=== PATIENT | male | born 1970 | race Caucasian/White ===

== ENCOUNTER 2024-01-07 13:28 | Emergency (ER) | payer OTHER ==
[2024-01-07] MEDS ORDERED: IBUPROFEN 400 MG TAB ONE ×2 (14:08→14:20)
[2024-01-07] MEDS ORDERED: IBUPROFEN 200 MG TAB PO ONE (14:08)
[2024-01-07] MEDS ORDERED: HYDROCODONE/APAP 10/325 TAB ONE (14:09)
--- NOTE | 2024-01-07 14:44 | RAD REPORT ---
EXAM DESCRIPTION: RAD - Foot Left 3 View - 01/07/2024 2:17 pm CLINICAL HISTORY: Left Foot pain FINDINGS: No fracture or dislocation is seen. Large calcaneal spurs
--- NOTE | 2024-01-07 14:57 | EDPHYS ---
Physician Documentation [facility] Name: Stepan Workman Age: 53 yrs Sex: Male : 1970 Arrival Date: 01/07/2024 Time: : Bed 13 Private MD: ED Physician Martinez Hatch HPI: 01/06 13:44 This 53 yrs old Male presents to ER via Ambulatory with complaints of Ankle Injury. rn 13:46 The patient presents with decreased range of motion, an injury, pain. The complaints rn affect the left foot. 13:46 Onset: The symptoms/episode began/occurred 1 week(s) ago. Modifying factors: The rn symptoms are alleviated by nothing, the symptoms are aggravated by movement. Severity of symptoms: At their worst the symptoms were moderate, in the emergency department the symptoms are unchanged. The patient has not experienced similar symptoms in the past. Patient reports stepped in a pothole wearing steel toe boots a week ago. Had pain to the left midfoot. States pain was getting better but now getting worse. Tried going to work today wearing steel toe boots and hurt even more. No open wounds. Reports hurts to dorsum of midfoot.. 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 - Infectious Disease History:: Denies. - Family history:: not pertinent. - Hospitalizations: : No recent hospitalization is reported. - Social history:: Smoking status: Patient denies any tobacco usage or history of. ROS: 13:46 Constitutional: Negative for fever, chills, and weight loss, MS/Extremity: Positive for rn injury and pain to left foot. Skin: Negative for injury, rash, and discoloration, Exam: 13:46 Constitutional: This is a well developed, well nourished patient who is awake, alert, rn and in no acute distress. MS/ Extremity: Pulses equal, no cyanosis. Neurovascular intact. Mild tenderness dorsum left midfoot, no open wounds. No warmth. No significant swelling. No tenderness of the ankle or tib-fib. Vital Signs: 13:40 BP 117 / 86; Pulse 68; Resp 16; Temp 97.8; Pulse Ox 100% on R/A; Weight 122.47 kg; hb Height 6 ft. 2 in. ; Pain 9/10; 15:01 BP 120 / 81; Pulse 71; Resp 17; Pulse Ox 99% on R/A; rs5 13:40 Body Mass Index 34.67 (122.47 kg, 187.96 cm) hb 13:40 Pain Scale: Adult hb MDM: 13:31 Patient medically screened. rn 14:56 Differential diagnosis: fracture, sprain. Data reviewed: vital signs, nurses notes, rn radiologic studies, plain films, and as a result, I will discharge patient. Counseling: I had a detailed discussion with the patient and/or guardian regarding the historical points, exam findings, and any diagnostic results supporting the discharge/admit diagnosis, radiology results, the need for outpatient follow up, to return to the emergency department if symptoms worsen or persist or if there are any questions or concerns that arise at home. Special discussion: I discussed with the patient/guardian in detail that at this point there is no indication for admission to the hospital. It is understood, however, that if the symptoms persist or worsen the patient needs to return immediately for re-evaluation. Based on the history and exam findings, there is no indication for further emergent testing or inpatient evaluation. I discussed with the patient/guardian the need to see the rheumatology specialist for further evaluation of the symptoms. I discussed with the patient/guardian the need to see the primary care provider for further evaluation of the symptoms. 14:56 Independent interpretation of the following test(s) in the Emergency Department X-Ray: rn My interpretation is X-ray left foot images negative for acute fracture or dislocation per my interpretation.. 01/06 13:44 Order name: XRAY Foot LEFT 3 View; Complete Time: 14:48 rn Administered Medications: 14:06 Drug: Ibuprofen PO 800 mg PO once Route: PO; rs5 15:00 Follow up: Response: No adverse reaction; Pain is decreased rs5 14:06 Drug: [place] PO 10 mg-325 mg 1 tabs PO once Route: PO; rs5 15:00 Follow up: Response: No adverse reaction rs5 Disposition Summary: 01/07/24 14:57 Discharge Ordered Notes: Location: Home rn Problem: new rn Symptoms: have improved rn Condition: Stable rn Diagnosis - Other sprain of left foot rn Followup: rn - With: Private Physician - When: As needed - Reason: Recheck today's complaints, Re-evaluation by your physician Discharge Instructions: - Discharge Summary Sheet rn - Foot Sprain rn - Foot Pain rn Forms: - Medication Reconciliation Form rn - Antibiotic fingernail technician - Prescription Opioid Use rn - Patient Portal Instructions rn - Leadership Thank You Letter rn Signatures: Dispatcher [employer] Martinez Sosa MD MD rn Baxter, Heather, RN RN Johnson Donnelly RN RN rs5
--- NOTE | 2024-01-07 14:57 | ER ---
Nurse's Notes [facility] Name: Stepan Workman Age: 53 yrs Sex: Male : 1970 Arrival Date: 01/07/2024 Time: 13:28 Bed 13 Private MD: Diagnosis: Other sprain of left foot Presentation: 01/06 13:40 Chief complaint: Worsening left ankle pain x 1 week. Coronavirus screen: At this time, hb the client does not indicate any symptoms associated with coronavirus-19. Ebola Screen: No symptoms or risks identified at this time. Initial Sepsis Screen: Does the patient meet any 2 criteria? No. Patient's initial sepsis screen is negative. Does the patient have a suspected source of infection? No. Patient's initial sepsis screen is negative. Risk Assessment: Do you want to hurt yourself or someone else? Patient reports no desire to harm self or others. Onset of symptoms was December 31, 2023. 13:40 Method Of Arrival: Ambulatory hb 13:40 Acuity: IWONA 4 hb Triage Assessment: 13:34 General: Appears in no apparent distress. uncomfortable, Behavior is calm, cooperative. rs5 Pain: Complains of pain in left ankle. 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 - Infectious Disease History:: Denies. - Family history:: not pertinent. - Hospitalizations: : No recent hospitalization is reported. - Social history:: Smoking status: Patient denies any tobacco usage or history of. Screenin:33 Abuse screen: Denies threats or abuse. rs5 13:33 Nutritional screening: No deficits noted. Tuberculosis screening: No symptoms or risk rs5 factors identified. 13:45 [facility] ED Fall Risk Assessment (Adult) History of falling in the last 3 months, hb including since admission No falls in past 3 months (0 pts) Confusion or Disorientation No (0 pts) Intoxicated or Sedated No (0 pts) Impaired Gait No (0 pts) Mobility Assist Device Used No (0 pt) Altered Elimination No (0 pt) Score/Fall Risk Level 0 - 2 = Low Risk Oriented to surroundings, Maintained a safe environment, Educated pt \T\ family on fall prevention, incl call for assistance when getting out of bed, Assessed \T\ reinforced patient's understanding of fall precautions, Hourly rounding (assess needs \T\ fall precautionary measures) done. Assessment: 13:33 General: Appears in no apparent distress. uncomfortable, Behavior is calm, cooperative. rs5 Pain: Complains of pain in left ankle Pain currently is 8 out of 10 on a pain scale. Quality of pain is described as aching, Is continuous. Neuro: Level of Consciousness is awake, alert, obeys commands, Oriented to person, place, time, situation. Cardiovascular: Rhythm is regular. Respiratory: Airway is patent Respiratory effort is even, unlabored, Respiratory pattern is regular, symmetrical. GI: Abdomen is round non-distended, Abd is soft and non tender X 4 quads. : No signs and/or symptoms were reported regarding the genitourinary system. EENT: No signs and/or symptoms were reported regarding the EENT system. Derm: Skin is intact, Skin is pink, warm \T\ dry. Musculoskeletal: Range of motion: limited in left ankle. 14:41 Reassessment: Patient and/or family updated on plan of care and expected duration. Pain rs5 level reassessed. Patient is alert, oriented x 3, equal unlabored respirations, skin warm/dry/pink. Patient states feeling better. Patient states symptoms have improved. 15:10 Reassessment: No changes from previously documented assessment. rs5 Vital Signs: 13:40 BP 117 / 86; Pulse 68; Resp 16; Temp 97.8; Pulse Ox 100% on R/A; Weight 122.47 kg; hb Height 6 ft. 2 in. ; Pain 9/10; 15:01 BP 120 / 81; Pulse 71; Resp 17; Pulse Ox 99% on R/A; rs5 13:40 Body Mass Index 34.67 (122.47 kg, 187.96 cm) hb 13:40 Pain Scale: Adult hb ED Course: 13:31 Patient arrived in ED. mr 13:31 Martinez Hatch MD is Attending Physician. rn 13:33 Patient has correct armband on for positive identification. Placed in gown. Bed in low rs5 position. Call light in reach. Side rails up X2. 13:33 Arm band placed on right wrist. rs5 13:33 No provider procedures requiring assistance completed. rs5 13:35 Johnson Moyer, RN is Primary Nurse. rs5 13:41 Triage completed. hb 14:19 XRAY Foot LEFT 3 View In Process Unspecified. EDMS 15:00 IV discontinued, intact, bleeding controlled, No redness/swelling at site. Pressure rs5 dressing applied. Administered Medications: 14:06 Drug: Ibuprofen PO 800 mg PO once Route: PO; rs5 15:00 Follow up: Response: No adverse reaction; Pain is decreased rs5 14:06 Drug: [place] PO 10 mg-325 mg 1 tabs PO once Route: PO; rs5 15:00 Follow up: Response: No adverse reaction rs5 Medication: 14:00 VIS not applicable for this client. rs5 Outcome: 14:57 Discharge ordered by . rn 15:00 Discharged to home ambulatory, rs5 15:00 Condition: stable 15:00 Discharge instructions given to patient, family, Instructed on discharge instructions, follow up and referral plans. Demonstrated understanding of instructions, follow-up care, 15:11 Patient left the ED. rs5 Signatures: Dispatcher [employer] EDNY Yamil Vane, Reg Reg mr Martinez Hatch MD MD rn Baxter, Heather, RN RN Johnson Moyer, VIJAY RN rs5 Corrections: (The following items were deleted from the chart) 18:15 13:33 Pain: Complains of pain in right ankle Pain currently is 8 out of 10 on a pain rs5 scale. Quality of pain is described as aching, Is continuous, rs5 18:15 13:33 Musculoskeletal: Range of motion: limited in right ankle rs5 rs5
[2024-01-07 15:23] VITALS: BP 117/86; TEMP 97.8; O2SAT 100
== END 2024-01-07 15:11 | disposition home or self-care (01) ==
LOC: ER 13:28
DX: S93.692A Other sprain of left foot, initial encounter (principal); Z79.82 Long term (current) use of aspirin
CPT/HCPCS: 99283

== ENCOUNTER 2025-03-08 11:21 | Emergency (ER) | payer OTHER, SELFPAY ==
[2025-03-08] MEDS ORDERED: HYDROCODONE/APAP 5/325 MG TAB ONE (12:42)
[2025-03-08] MEDS ORDERED: KETOROLAC 30 MG/ML INJ ONE (12:43)
--- NOTE | 2025-03-08 12:54 | ER ---
Nurse's Notes [facility] Name: Stepan Workman Age: 54 yrs Sex: Male : 1970 Arrival Date: 03/08/2025 Time: 11:21 Bed 11 Private MD: Diagnosis: Pain in left foot Presentation: 03/08 11:38 Chief complaint: Patient states: bone spur to left heel, rec'd an injection for pain me1 that was effective but has started to wear off the past 4-5 days and [facility]. Pain level 8/10. Coronavirus screen: Vaccine status: Patient reports receiving the 2nd dose of the covid vaccine. Ebola Screen: No symptoms or risks identified at this time. Initial Sepsis Screen: Does the patient meet any 2 criteria? No. Patient's initial sepsis screen is negative. Does the patient have a suspected source of infection? No. Patient's initial sepsis screen is negative. Risk Assessment: Do you want to hurt yourself or someone else? Patient reports no desire to harm self or others. Onset of symptoms is unknown. 11:38 Method Of Arrival: Ambulatory me1 11:38 Acuity: IWONA 4 me1 Historical: - Allergies: 11:42 No Known Allergies; me1 - PMHx: 11:42 chronic back pain; Hypertensive disorder; tachycardia; Anxiety; Depressive disorder; me1 - PSHx: 11:42 Adrenalectomy; me1 - Immunization history:: Adult Immunizations up to date. - Infectious Disease History:: Denies. - Social history:: Smoking status: Patient denies any tobacco usage or history of. Screenin:02 Abuse screen: Denies threats or abuse. Denies injuries from another. Nutritional ss screening: No deficits noted. Tuberculosis screening: Never had TB. Assessment: 13:02 General: Appears uncomfortable, Behavior is calm, cooperative. Pain:. Neuro: Level of ss Consciousness is awake, alert, obeys commands, Oriented to person, place, time, situation. Respiratory: Airway is patent Respiratory effort is even, unlabored, Respiratory pattern is regular, symmetrical. Derm: Skin is intact, is healthy with good turgor, Skin is pink, warm \T\ dry. normal. Vital Signs: 11:38 BP 119 / 84; Pulse 86; Resp 20; Temp 98; Pulse Ox 97% ; Weight 127.01 kg; Height 6 ft. me1 2 in. ; Pain 8/10; 11:38 Body Mass Index 35.95 (127.01 kg, 187.96 cm) me1 11:38 Pain Scale: Adult ks1 ED Course: 11:25 Patient arrived in ED. cj3 11:26 Jarek Fontaine FNP-C is [facility]. dr5 11:26 Jozef Robb MD is Attending Physician. dr5 11:42 Triage completed. me1 11:42 Arm band placed on Patient placed in waiting room. me1 13:01 Marylou Quevedo, RN is Primary Nurse. ss 13:02 Patient has correct armband on for positive identification. ss 13:02 No provider procedures requiring assistance completed. Patient did not have IV access ss during this emergency room visit. Administered Medications: 13:02 Drug: Ketorolac IM 30 mg IM once Route: IM; Site: right gluteus; ss 13:02 Follow up: Response: No adverse reaction; Medication Administered at Departure ss 13:02 Drug: HYDROcodone-acetaminophen PO 5 mg-325 mg 2 tabs PO once Route: PO; ss 13:02 Follow up: Response: Medication Administered at Departure ss Outcome: 12:53 Discharge ordered by MD. dr5 13:02 Discharged to home via wheelchair, with family, ss 13:02 Condition: good 13:02 Discharge instructions given to patient, Instructed on discharge instructions, follow up and referral plans. medication usage, Demonstrated understanding of instructions, follow-up care, medications, Prescriptions given X 2, 13:04 Patient left the ED. ss Signatures: Marylou Quevedo, VIJYA RN Magaly Cervantes RN RN ks1 Jarek Fontaine FNP-C FNP-Cdr5 Danielle Escalona cj3
--- NOTE | 2025-03-08 12:54 | EDPHYS ---
Physician Documentation [facility] Name: Stepan Workman Age: 54 yrs Sex: Male : 1970 Arrival Date: 03/08/2025 Time: 11:21 Bed 11 Private MD: AMANDA Physician Jozef Robb HPI: 03/08 15:08 This 54 yrs old Male presents to ER via Ambulatory with complaints of Foot dr5 Pain - LT. 15:08 The complaints affect the lateral aspect of left foot. Onset: The symptoms/episode dr5 began/occurred 5 day(s) ago. Patient is a 54-year-old male with history of chronic back pain, hypertension, tachycardia, anxiety, depression coming in with pain to lateral aspect of left foot this been going on for the past 4 to 5 days. Patient reports [facility] and had [facility] completed a couple months ago and that relieved his pain. Patient states he is not able to get [facility] and needs pain relief. Patient denies difficulty ambulating, bearing weight, fever, or swelling to feet.. Historical: - Allergies: 11:42 No Known Allergies; me1 - PMHx: 11:42 chronic back pain; Hypertensive disorder; tachycardia; Anxiety; Depressive disorder; me1 - PSHx: 11:42 Adrenalectomy; me1 - Immunization history:: Adult Immunizations up to date. - Infectious Disease History:: Denies. - Social history:: Smoking status: Patient denies any tobacco usage or history of. ROS: 15:08 Constitutional: as per hpi dr5 Exam: 15:08 Constitutional: This is a well developed, well nourished patient who is awake, alert, dr5 and in no acute distress. Head/Face: Normocephalic, atraumatic. ENT: Nares patent. No nasal discharge, no septal abnormalities noted. Tympanic membranes are normal and external auditory canals are clear. Oropharynx with no redness, swelling, or masses, exudates, or evidence of obstruction, uvula midline. Mucous membranes moist. Chest/axilla: Normal chest wall appearance and motion. Nontender with no deformity. No lesions are appreciated. Cardiovascular: Regular rate and rhythm with a normal S1 and S2. Normal PMI, no JVD. No pulse deficits. Respiratory: Lungs have equal breath sounds bilaterally, clear to auscultation. No rales, rhonchi or wheezes noted. No increased work of breathing, no retractions or nasal flaring. Abdomen/GI: Soft, non-tender, non-distended Back: No spinal tenderness. No costovertebral tenderness. Full range of motion. Skin: Warm, dry with normal turgor. Normal color with no rashes, no lesions, and no evidence of cellulitis. Neuro: Awake and alert, GCS 15, oriented to person, place, time, and situation. Cranial nerves II-XII grossly intact. Motor strength 5/5 in all extremities. Sensory grossly intact. Cerebellar exam normal. Normal gait. 15:08 Musculoskeletal/extremity: Extremities: grossly normal except: noted in the lateral aspect of left foot: pain, tenderness, ROM: no acute changes, intact in all extremities, Circulation is intact in all extremities. Sensation intact. Vital Signs: 11:38 BP 119 / 84; Pulse 86; Resp 20; Temp 98; Pulse Ox 97% ; Weight 127.01 kg; Height 6 ft. me1 2 in. ; Pain 8/10; 11:38 Body Mass Index 35.95 (127.01 kg, 187.96 cm) me1 11:38 Pain Scale: Adult me1 MDM: 11:26 Medical Screening Exam initiated dr5 15:08 Differential diagnosis: contusion, abrasion, Heel spur. Data reviewed: vital signs, dr5 nurses notes. Consideration of Admission/Observation Escalation of care including admission/observation considered. Escalation considered patient found to have bilateral lower extremity edema or swelling.. I considered the following discharge prescriptions or medication management in the emergency department I discussed and recommended Over The Counter medications, Medications were administered in the Emergency Department. See MAR. Test considered but Not performed: X-ray: X-ray considered but patient declines. Care significantly affected by the following chronic conditions: Chronic back pain, hypertension, tachycardia, anxiety, depression. Care significantly affected by the following Social Determinants of Health: Poor access to healthcare and/or lack of insurance, Poor access to transportation, Problems related to employment. Counseling: I had a detailed discussion with the patient and/or guardian regarding the historical points, exam findings, and any diagnostic results supporting the discharge/admit diagnosis, the presence of at least one elevated blood pressure reading (>120/80) during this emergency department visit, the need for outpatient follow up, for definitive care, a family practitioner, to return to the emergency department if symptoms worsen or persist or if there are any questions or concerns that arise at home. Medication response: [place]. Response to treatment: the patient's symptoms have markedly improved after treatment. Special discussion: I discussed with the patient/guardian in detail that at this point there is no indication for admission to the hospital. It is understood, however, that if the symptoms persist or worsen the patient needs to return immediately for re-evaluation. Based on the history and exam findings, there is no indication for further emergent testing or inpatient evaluation. I discussed with the patient/guardian the need to see the orthopedic surgeon for further evaluation of the symptoms. ED course: Recommended [facility] the [facility]. Patient was given Toradol and [place] here. Patient reports that he will [facility] an appointment [facility] for another [facility]. All questions answered. Strict ER precautions given.. Administered Medications: 13:02 Drug: Ketorolac IM 30 mg IM once Route: IM; Site: right gluteus; ss 13:02 Follow up: Response: No adverse reaction; Medication Administered at Departure ss 13:02 Drug: HYDROcodone-acetaminophen PO 5 mg-325 mg 2 tabs PO once Route: PO; ss 13:02 Follow up: Response: Medication Administered at Departure ss Disposition Summary: 03/08/25 12:53 Discharge Ordered Notes: Location: Home dr5 Condition: Stable dr5 Diagnosis - Pain in left foot dr5 Followup: dr5 - With: Emergency Department - When: As needed - Reason: Worsening of condition Followup: dr5 - With: Private Physician - When: 1 - 2 days - Reason: Recheck today's complaints, Continuance of care, Re-evaluation by your physician Discharge Instructions: - Discharge Summary Sheet dr5 - Heel Spur dr5 - Foot Pain dr5 Forms: - Medication Reconciliation Form dr5 - Prescription Opioid Use dr5 - Patient Portal Instructions dr5 - Leadership Thank You Letter dr5 Prescriptions: - Tramadol 50 mg Oral Tablet - take 1 tablet ORAL route every 8 hours as needed; 12 tablet; Refills: 0, dr5 Product Selection Permitted - Medrol (Héctor) 4 mg Oral Tablets, Dose Pack - take 1 tablet ORAL route as directed - follow package instructions; 1 packet; dr5 Refills: 0, Product Selection Permitted Addendum: 03/09/2025 13:35 Co-signature as Attending Physician, Jozef Robb MD I agree with the assessment and c powers plan of care. Signatures: Jozef Robb MD MD cha Blanchard, Shelby, RN RN ss Magaly Cervantes RN RN me1 Jarek Fontaine, MARC-C HYPERBARIC TECHNOLOGIST-5
[2025-03-08 20:16] VITALS: BP 119/84; TEMP 98; O2SAT 97
== END 2025-03-08 13:04 | disposition home or self-care (01) ==
LOC: ER 11:21
DX: M79.672 Pain in left foot (principal)
CPT/HCPCS: 96372; 99284